=== PATIENT | female | born 1985 | race Caucasian/White ===

== ENCOUNTER 2024-10-16 07:28 | Emergency (ER) | payer MEDICAID, SELFPAY ==
[2024-10-16 07:35] VITALS: BP 114/69; PULSE 99; RESP 19; TEMP 36.8; O2SAT 100; BMI 19.8
--- NOTE | 2024-10-16 07:37 | XR_ITS ---
Examination: PA lateral chest 2 views TECHNIQUE: Upright PA lateral chest 2 views Exam date and time: October 16, 2024 0749 hours INDICATIONS: Coughing beginning 3 days ago. FINDINGS: Pneumonia in the lingular segment left upper lobe and also at the left lung base posteriorly Normal heart size The osseous structures are intact IMPRESSION: Pneumonia lingular segment left upper lobe and left base
--- NOTE | 2024-10-16 09:23 | PD.EDURI ---
Upper Respiratory Inf. RME/HPI General Chief Complaint: Shortness of Breath/Dyspnea Stated Complaint: LEFT LOWER LUNG PAIN AFTER COUGH X 3 DAYS Time Seen by Provider: 10/16/24 07:30 Arrival date/time: 10/16/24 07:28 39-year-old female presents emergency department complains of cough and congestion patient for symptoms ongoing for the last 3 days. Patient does report she is homeless Limitations: no limitations Related Data Home Medications ?Medication ?Instructions ?Recorded ?Confirmed ascorbic acid (vitamin C) 125 mg 125 mg PO QDAY 03/17/23 03/17/23 chewable tablet (Vitamin C) ergocalciferol (vitamin D2) 1,000 1 unit PO 03/17/23 unit capsule Previous Rx's ?Medication ?Instructions ?Recorded benzonatate 100 mg capsule 100 mg PO TID #14 caps 10/16/24 ibuprofen 600 mg tablet 600 mg PO Q6H #30 tabs 10/16/24 levofloxacin 750 mg tablet 750 mg PO Q24H 5 days #5 tabs 10/16/24 Allergies Allergy/AdvReac Type Severity Reaction Status Date / Time banana Allergy Unknown Verified 10/16/24 07:29 Cephalosporins Allergy Unknown Verified 10/16/24 07:29 promethazine Allergy Unknown Verified 10/16/24 07:29 cantaloupe Allergy Verified 10/16/24 07:29 Review of Systems Review of Systems Systems Reviewed: All systems reviewed, normal except as documented Constitutional Constitutional: Reports system reviewed and no additional complaints, except as documented, Denies fever(s) and Denies headache(s) Eyes Eyes: Reports system reviewed and no additional complaints, except as documented and Denies blurry vision ENT Ears, Nose, Mouth, and Throat: Reports system reviewed and no additional complaints, except as documented, Denies headache(s), Denies nasal congestion and Denies nasal discharge Cardiovascular Cardiovascular: Reports system reviewed and no additional complaints, except as documented, Denies chest pain and Denies dyspnea Respiratory Respiratory: Reports system reviewed and no additional complaints, except as documented, Reports chest congestion, Denies cough and Denies dyspnea Gastrointestinal Gastrointestinal: Reports system reviewed and no additional complaints, except as documented and Denies abdominal pain Integumentary/Breasts Skin/Breast: Reports system reviewed and no additional complaints, except as documented and Denies rash Neurologic Neurologic: Reports system reviewed and no additional complaints, except as documented, Reports as per HPI and Denies headache(s) Past Medical History Past Medical History NEUROLOGIC: Positive Neurological Disorders and Migraine CARDIAC: Negative Cardiac Disorders or Congestive Heart Failure RESPIRATORY: Positive Chronic Obstructive Pulmonary Disease (COPD), Asthma (Asthma, Bronchitis), Bronchitis and Emphysema GASTROINTESTINAL: Positive Hepatitis; Negative Gastrointestinal Disorders GENITOURINARY: Negative Genitourinary Disorders or Renal Disease REPRODUCTIVE: Positive Previous Pregnancies MUSCULOSKELETAL: Positive Musculoskeletal Disorders and Arthritis ENDOCRINE: Negative Endocrine Disorders, Diabetes Mellitus Type 1 or Diabetes Mellitus Type 2 HEMATOLOGIC: Positive Blood Disorders and Anemia; Negative Sickle Cell Disease PSYCHO/SOCIAL: Positive Depression and Anxiety Family History FAMILY HISTORY: Positive Family Psychiatric Problems, Family Respiratory Disorders and Family Cancer; Negative Family Cardiac Disorders or Family Gastrointestinal Problems Surgical History SURGICAL: Positive Abdominal Surgery (hernia repair) and Tubal Ligation Social History SMOKING STATUS: Light (< 1 pack/day) SECOND HAND EXPOSURE: Yes ED Exam General Limitations: Present no limitations General appearance: Present alert and in no apparent distress Head Head exam: Present atraumatic Eye Eye exam: Present normal appearance, PERRL and EOMI; Absent conjunctival injection ENT ENT exam: Present normal exam, normal oropharynx and mucous membranes moist Neck Neck exam: Present normal inspection, full ROM and trachea midline Chest Chest inspection: Present normal inspection and symmetric chest wall rise Respiratory Respiratory exam: Present normal lung sounds bilaterally; Absent respiratory distress, wheezes, stridor, accessory muscle use or prolonged expiratory phase Cardiovascular Cardiovascular exam: Present regular rate, normal rhythm and normal heart sounds; Absent bradycardia, tachycardia or irregular rhythm Abdominal Exam Abdominal exam: Present soft and normal bowel sounds Extremities Exam Extremities exam: Present normal inspection and full ROM Back Exam Back exam: Present normal inspection and full ROM Neurological Exam Neurological exam: Present alert, oriented X3 and CN II-XII intact Psychiatric Psychiatric exam: Present normal affect and normal mood Skin Skin exam: Present warm, dry, intact and normal color Course Quality Measures none Orders Category Date Time Status XR chest 2V Stat Exams 10/16/24 07:37 Completed Vital Signs Vital signs: Vital Signs Temperature 98.2 F 10/16/24 07:35 Pulse Rate 99 10/16/24 07:35 Respiratory Rate 19 10/16/24 07:35 Blood Pressure 114/69 10/16/24 07:35 Pulse Oximetry (%) 100 10/16/24 07:35 Oxygen Delivery Method Room Air 10/16/24 07:35 O2 saturation 100% room air within normal limits Upper Respiratory Infection MDM Narrative MDM Narrative:: 39-year-old female presents emergency department complains of cough and congestion patient for symptoms ongoing for the last 3 days. Patient does report she is homeless On exam patient does not appear ill or toxic does not appear to be acute distress Chest x-ray obtained consistent with pneumonia Patient discharged home with Levaquin Patient discharged home in no distress to follow-up with primary care doctor in the next 24 to 48 hours and for any worsening symptoms to return to the ER immediately Patient data External records reviewed:: [facility] [place] Clinical information provided by:: patient Social determinants that could affect healthcare access:: none Patient has the following chronic illnesses:: None How is presenting disease/condition affected by chronic disease/condition?: no chronic disease Evaluation data The following diagnostics were reviewed and interpreted by me:: lab results and radiology exam(s) Lab and/or radiology exams considered but not ordered:: Labs radiology obtained Interpretation Summary: Reviewed by me Medications / Prescriptions Medications or Prescriptions considered but not ordered:: Given Medication administrations:: Given Consultations Consultation(s) initiated? (list below): No Diagnosis Upper Respiratory Differential Diagnosis: upper respiratory infection, sinusitis, viral infection, bronchitis and influenza Most likely diagnosis given after review of the tests above:: Pneumonia Admission Indicated Admission indicated?: not indicated Admission Request Was there a request for admission?: No Disposition Plan Disposition Plan: Discharge Discharge Attestation Discharge Attestation: The patient and all family members were given an opportunity to ask questions and understood the discharge instructions. Discharge instructions specifically effects, indications for sooner follow up or return to the emergency department, and the expected course of current diagnosis. Patient condition: Stable Discharge Plan Plan Patient Disposition: HOME (Self Care) Disposition Comment: Stable Prescriptions/Referrals Prescriptions/Med Rec: New benzonatate 100 mg capsule 100 mg PO TID Qty: 14 0RF levofloxacin 750 mg tablet 750 mg PO Q24H 5 Days Qty: 5 0RF ibuprofen 600 mg tablet 600 mg PO Q6H Qty: 30 0RF No Action ergocalciferol (vitamin D2) 1,000 unit Capsule 1 unit PO ascorbic acid (vitamin C) [Vitamin C] 125 mg Tablet,Chewable 125 mg PO QDAY Referrals: Brendan Blanchard MD [Primary Care Provider] - 10/17/24 Problem List Clinical Impression: Pneumonia, Homelessness Patient/Caregiver Discharge Instructions Education Materials: ED Pneumonia (Adult) Additional Instructions: Please follow up with your primary care doctor in the next 24-48hrs for any worsening symptoms return here immediately Print Language: Bermudian Stand Alone Forms: Bertha Award Info., Patient Portal Info Letter PA/WINDOWS LAPTOP TECHNICIAN Supervising Physician PA/WINDOWS LAPTOP TECHNICIAN Supervising Physician: Dr Perez
== END 2024-10-16 10:40 | disposition home or self-care (01) ==
PROVIDERS: Emergency Provider Emergency Medicine; PCP Family Medicine
DX: J18.9 Pneumonia, unspecified organism (principal); Z59.00 Homelessness unspecified
CPT/HCPCS: 71046; 80307; 81001; 81025; 99283

== ENCOUNTER 2025-07-18 03:44 | Emergency (ER) | payer MEDICAID, SELFPAY ==
[2025-07-18 03:48] VITALS: PULSE 68; O2SAT 99; BMI 18.8
[2025-07-18 04:00] VITALS: BP 124/75; PULSE 86; RESP 19; TEMP 36.6; O2SAT 100
--- NOTE | 2025-07-18 04:27 | XR_ITS ---
Examination: CT abdomen and pelvis without contrast. Coronal 3-D reconstructions. Sagittal 2-D reconstructions. Date and time of exam:July 18, 2025, 0609 hours, comparison March 18, 2023 INDICATIONS: Abdominal pain radiating to back with diarrhea and left flank pain beginning 3 days ago, history bilateral pyosalpinx CTDI: vol (mGy): 4.39 DLP: (mGycm): 208 Technique: Axial images of the abdomen have been obtained, 3 mm slice thickness Intravenous contrast material has not been administered. Low dose protocols were performed. One or more of the following dose reduction techniques were used; automated exposure control, adjustment of the mA and/or KV according to patient size, use of iterative reconstruction technique. Findings: No focal liver or splenic lesions. Gallbladder appears contracted Fluid distended stomach No pancreatic mass. No renal or ureteral calculi No bowel obstruction Appendix partially visualized not enlarged No pericecal inflammatory change No diverticulitis Anteverted uterus Bowel loops in the pelvis Urinary bladder wall thickening up to 8 mm Mild diffuse lumbar disc narrowing IMPRESSION: The entire study is significantly limited without intravenous contrast No renal or ureteral calculi, no hydronephrosis Appendix appears partially visualized not enlarged No diverticulitis Cystitis pattern
--- NOTE | 2025-07-18 04:28 | XR_ITS ---
Examination: Abdomen sonogram, Limited Date and time of exam: July 18, 2025, 0514 hours INDICATIONS: Abdominal pain beginning 9:00 PM last night. Technique: Real-time alston scale transabdominal sonographic images of the upper abdomen obtained. Findings: Normal gallbladder. Normal common bile duct 0.3 cm. Pancreatic head 2.4 cm Liver 13.9 cm smooth contour no focal liver lesions. Normal hepatopedal portal venous flow. Patent IVC. IMPRESSION: Normal gallbladder. Normal common bile duct.
--- NOTE | 2025-07-18 04:28 | PD.EDRME ---
Rapid Medical Screening Exam [facility] Arrival date/time: 07/18/25 03:44 40F with history of homelessness and tubal ligation presents to ED with 2 days of back/flank pain, N/V, and non-bloody diarrhea. Chief Complaint: Abdominal Pain Vital signs: Vital Signs Temperature 97.9 F 07/18/25 04:00 Pulse Rate 86 07/18/25 04:00 Respiratory Rate 19 07/18/25 04:00 Blood Pressure 124/75 07/18/25 04:00 Pulse Oximetry (%) 100 07/18/25 04:00 Oxygen Delivery Method Room Air 07/18/25 04:00
[2025-07-18] MEDS: ONDANSETRON ODT 4 MG TABRAP PO (05:12)
[2025-07-18] MEDS: DICYCLOMINE 10 MG CAPSULE PO (05:12)
[2025-07-18 05:24] LABS: Basophils # (Auto) 0.0 Thou/mm3 (0.0-0.2); Basophils % (Auto) 0 % (0-2.5); Eosinophils # (Auto) 0.1 Thou/mm3 (0.0-0.5); Eosinophils % (Auto) 1 % (0-10); Hematocrit 44.5 % (36.0-46.0); Hemoglobin 14.7 g/dL (12.0-16.0); Immature Granulocytes Auto 0.02 Thou/mm3 (0.00-0.00); Lymphocytes # (Auto) 1.9 Thou/mm3 (1.0-4.8); Lymphocytes % (Auto) 24 % (10-50); Mean Corpuscular HGB Conc 33.0 g/dl (31.0-37.0); Mean Corpuscular Hemoglobin 29.5 pg (25.0-35.0); Mean Corpuscular Volume 89 fL (80-100); Monocytes # (Auto) 0.5 Thou/mm3 (0.0-0.8); Monocytes % (Auto) 6 % (0-12); Neutrophils # (Auto) 5.3 Thou/mm3 (1.8-7.7); Neutrophils % (Auto) 68 % (37-80); Nucleated Red Blood Cell # 0.00 Thou/mm3 (0.00-0.00); Nucleated Red Blood Cell % 0 /100 WBC (0); Platelet Count 197 Thou/mm3 (140-440); RDW Standard Deviation 43.8 fL (36.4-46.3); Red Blood Count 4.99 Miln/mm3 (4.00-5.20); White Blood Count 7.8 Thou/mm3 (3.6-11.0)
[2025-07-18 05:31] LABS: Collection Type, Urine Clean Catch
[2025-07-18 06:26] LABS: Alanine Aminotransferase 35 U/L (10-49); Albumin, Serum 4.3 gm/dL (3.5-5.0); Albumin/Globulin Ratio 1.7 (1.2-2.2); Alcohol, Blood Medical < 3.0 mg/dL (0-10.0); Alkaline Phosphatase 82 U/L (46-116); Anion Gap 7 (7-16); Aspartate Amino Transferase 47 U/L (0-34); BUN/Creatinine Ratio 13 Ratio (12-20); Bilirubin,Total 0.2 mg/dL (0.3-1.2); Blood Urea Nitrogen 10 mg/dL (9-23); Calcium 10.1 mg/dL (8.3-10.6); Calcium (Corrected) 10.1 mg/dL (8.5-10.1); Carbon Dioxide 26.7 mMol/L (20.0-31.0); Chloride 106 mMol/L (98-107); Creatinine (Component) 0.8 mg/dL (0.6-1.3); Estimated Creatinine Clearance 65.6 mL/min (>60); Globulin 2.5 gm/dL (2.3-3.5); Glucose 87 mg/dL (74-106); Lipase 35 U/L (12-53); Osmolality,Calculated 277 (275-295); Potassium 4.2 mMol/L (3.4-5.1); Sodium 140 mMol/L (136-145); Total Protein 6.8 gm/dL (5.7-8.2); eGFR > 60 See Note
[2025-07-18 06:31] LABS: Amphetamine/Methamp Scrn,U Positive (Negative); Barbiturate Screen,Urine Negative (Negative); Benzodiazepines Screen,Urine Negative (Negative); Benzoylecgonine Screen, Ur Negative (Negative); Fentanyl Screen,Urine Negative (Negative); Opiate Screen,Urine Negative (Negative); THC Screen,Urine Positive (Negative)
[2025-07-18 06:45] LABS: Bacteria,Urine 1+; Bilirubin,Urine Negative (Negative); Blood,Urine 1+ (Negative); Calcium Oxalate Crystals,Urine 4+; Clarity,Urine Turbid (Clear/Hazy); Color,Urine Yellow (Lt Yel-Yel); Culture Indicated,Urine Contaminated; Glucose, Urine Negative (Negative); Ketones,Urine Negative (Negative); Leukocyte Esterase,Urine Negative (Negative); Nitrite,Urine Positive (Negative); PH,Urine 6.0 (5.0-7.0); Protein,Urine Trace (Neg - Trace); RBC,Urine 7 /hpf (0-3); Specific Gravity,Urine 1.033 (1.001-1.035); Squamous Epithelial Cell,Urine 20 /hpf (0-5); Urobilinogen,Urine Negative mg/dL (0.0-1.0); WBC,Urine 7 /hpf (0-5)
[2025-07-18 07:33] VITALS: BP 125/80; PULSE 107; RESP 16; TEMP 36.8; O2SAT 98
--- NOTE | 2025-07-18 07:59 | EDNOTE_ITS ---
ED Abdominal Pain RME/HPI General Chief Complaint: Abdominal Pain Stated complaint: ABD PAIN RADIATING TO BACK, DIARRHEA Time seen by provider: 07/18/25 06:43 Arrival date/time: 07/18/25 03:44 40F with history of homelessness and tubal ligation presents to ED with 2 days of back/flank pain, N/V, and non-bloody diarrhea. Limitations: no limitations RME / HPI RME / HPI narrative: 07/18/25 03:44 40F with history of homelessness and tubal ligation presents to ED with 2 days of back/flank pain, N/V, and non-bloody diarrhea. Related Data Home Medications ?Medication ?Instructions ?Recorded ?Confirmed ascorbic acid (vitamin C) 125 mg 125 mg PO QDAY 03/17/23 chewable tablet (Vitamin C) ergocalciferol (vitamin D2) 1,000 1 unit PO 03/17/23 unit capsule Previous Rx's ?Medication ?Instructions ?Recorded benzonatate 100 mg capsule 100 mg PO TID #14 caps 09/22 05/14 ibuprofen 600 mg tablet 600 mg PO Q6H #30 tabs 10/16 ciprofloxacin HCl 500 mg tablet 500 mg PO BID 7 days # 14 tabs 07/18/25 loperamide 2 mg capsule (Imodium 2 mg PO Q6H PRN loose stool #14 07/18/25 A-D) caps ondansetron 4 mg disintegrating 4 mg PO Q8H PRN nausea and 07/18/25 tablet vomiting #10 tabs Allergies Allergy/AdvReac Type Severity Reaction Status Date / Time banana Allergy Unknown Verified 07/18/25 03:53 Cephalosporins Allergy Unknown Verified 07/18/25 03:53 promethazine Allergy Unknown Verified 07/18/25 03:53 cantaloupe Allergy Verified 07/18/25 03:53 Review of Systems Review of Systems Systems Reviewed: All systems reviewed, normal except as documented Constitutional Constitutional: Reports system reviewed and no additional complaints, except as documented, Denies fever(s) and Denies headache(s) Eyes Eyes: Reports system reviewed and no additional complaints, except as documented and Denies blurry vision ENT Ears, Nose, Mouth, and Throat: Reports system reviewed and no additional complaints, except as documented, Denies headache(s), Denies nasal congestion and Denies nasal discharge Cardiovascular Cardiovascular: Reports system reviewed and no additional complaints, except as documented, Denies chest pain and Denies dyspnea Respiratory Respiratory: Reports system reviewed and no additional complaints, except as documented, Denies chest congestion, Denies cough and Denies dyspnea Gastrointestinal Gastrointestinal: Reports system reviewed and no additional complaints, except as documented, Reports abdominal pain, Reports cramping, Reports loose stools and Reports vomiting Integumentary/Breasts Skin/Breast: Reports system reviewed and no additional complaints, except as documented and Denies rash Neurologic Neurologic: Reports system reviewed and no additional complaints, except as documented, Reports as per HPI and Denies headache(s) Past Medical History Past Medical History NEUROLOGIC: Positive Neurological Disorders and Migraine CARDIAC: Negative Cardiac Disorders or Congestive Heart Failure RESPIRATORY: Positive Chronic Obstructive Pulmonary Disease (COPD), Asthma (Asthma, Bronchitis), Bronchitis and Emphysema GASTROINTESTINAL: Positive Hepatitis; Negative Gastrointestinal Disorders GENITOURINARY: Negative Genitourinary Disorders or Renal Disease REPRODUCTIVE: Positive Previous Pregnancies MUSCULOSKELETAL: Positive Musculoskeletal Disorders and Arthritis ENDOCRINE: Negative Endocrine Disorders, Diabetes Mellitus Type 1 or Diabetes Mellitus Type 2 HEMATOLOGIC: Positive Blood Disorders and Anemia; Negative Sickle Cell Disease PSYCHO/SOCIAL: Positive Depression and Anxiety Family History FAMILY HISTORY: Positive Family Psychiatric Problems, Family Respiratory Disorders and Family Cancer; Negative Family Cardiac Disorders or Family Gastrointestinal Problems Surgical History SURGICAL: Positive Abdominal Surgery (hernia repair) and Tubal Ligation Social History SMOKING STATUS: Current every day smoker SECOND HAND EXPOSURE: Yes ED Exam General Limitations: Present no limitations General appearance: Present alert and in no apparent distress Head Head exam: Present atraumatic, normocephalic and normal inspection Eye Eye exam: Present normal appearance, PERRL and EOMI; Absent conjunctival injection ENT ENT exam: Present normal exam, normal oropharynx and mucous membranes moist Neck Neck exam: Present normal inspection, full ROM and trachea midline Chest Chest inspection: Present normal inspection and symmetric chest wall rise Respiratory Respiratory exam: Present normal lung sounds bilaterally; Absent respiratory distress or wheezes Cardiovascular Cardiovascular exam: Present regular rate, normal rhythm and normal heart sounds Abdominal Exam Abdominal exam: Present soft and normal bowel sounds; Absent distention, tenderness, rebound or rigidity Extremities Exam Extremities exam: Present normal inspection and full ROM Back Exam Back exam: Present normal inspection and full ROM Neurological Exam Neurological exam: Present alert, oriented X3 and CN II-XII intact Psychiatric Psychiatric exam: Present normal affect and normal mood Skin Skin exam: Present warm, dry, intact and normal color Course Quality Measures none Orders Category Date Time Status CT abdomen pelvis wo con Stat Exams 07/18/25 04:27 Completed US gall bladder Stat Exams 07/18/25 04:28 Completed Alcohol, Blood Medical Stat Lab 07/18/25 04:57 Completed CBC Stat Lab 07/18/25 04:57 Completed CMP [Comprehensive Metabolic Panel] Stat Lab 07/18/25 04:57 Completed Drug Screen,Urine Stat Lab 07/18/25 04:41 Completed Lipase Stat Lab 07/18/25 04:57 Completed Urinalysis, C/S if Indicated Stat Lab 07/18/25 04:41 Completed Dicyclomine [Bentyl] Med 07/18/25 04:28 Discontinued 10 mg PO X1 ONE Ondansetron Odt [Zofran Odt] Med 07/18/25 04:27 Discontinued 4 mg PO X1 ONE Vital Signs Vital signs: Vital Signs Temperature 97.9 F 07/18/25 04:00 Pulse Rate 86 07/18/25 04:00 Respiratory Rate 19 07/18/25 04:00 Blood Pressure 124/75 07/18/25 04:00 Pulse Oximetry (%) 100 07/18/25 04:00 Oxygen Delivery Method Room Air 07/18/25 04:00 O2 saturation 100% on room air with normal limits Abdominal Pain MDM MDM Narrative MDM Narrative:: 40F with history of homelessness and tubal ligation presents to ED with 2 days of back/flank pain, N/V, and non-bloody diarrhea. On exam patient well-appearing patient does not appear ill or toxic no acute distress Lab work and imaging reviewed no acute emergent findings noted Patient discharged home in no distress to follow-up with primary care doctor in the next 24 to 48 hours and for any worsening symptoms to return to the ER immediately Patient data External records reviewed:: [facility] previous records Clinical information provided by:: patient Social determinants that could affect healthcare access:: housing Patient has the following chronic illnesses:: See history How is presenting disease/condition affected by chronic disease/condition?: caused by Evaluation data The following diagnostics were reviewed and interpreted by me:: lab results and radiology exam(s) Lab and/or radiology exams considered but not ordered:: Labs radiology obtained Interpretation Summary: Reviewed by me Medications / Prescriptions Medications or Prescriptions considered but not ordered:: Given Medication administrations:: Medication Administration History Discontinued Medications Dicyclomine HCl (Dicyclomine 10 Mg Capsule) 10 mg PO X1 ONE Stop: 07/18/25 04:29 Last Admin: 07/18/25 05:12 Dose: 10 mg Documented By: SHASHI Ondansetron HCl (Ondansetron Odt 4 Mg Tabrap) 4 mg PO X1 ONE; Protocol Stop: 07/18/25 04:28 Last Admin: 07/18/25 05:12 Dose: 4 mg Documented By: SHASHI Given Consultations Consultation(s) initiated? (list below): No Diagnosis Differential diagnosis abdominal pain: abdominal pain, acute appendicitis, calculus of kidney, constipation and diverticulitis Most likely diagnosis given after review of the tests above:: Abdominal pain Admission Indicated Admission indicated?: not indicated Admission Request Was there a request for admission?: No Disposition Plan Disposition Plan: Discharge Discharge Attestation Discharge Attestation: The patient and all family members were given an opportunity to ask questions and understood the discharge instructions. Discharge instructions specifically effects, indications for sooner follow up or return to the emergency department, and the expected course of current diagnosis. Patient condition: Stable Discharge Plan Plan Patient Disposition: HOME (Self Care) Discharge Disposition comment: Stable Prescriptions/Referrals Prescriptions/Med Rec: New loperamide [Imodium A-D] 2 mg capsule 2 mg PO Q6H PRN (Reason: loose stool) Qty: 14 0RF ciprofloxacin HCl 500 mg tablet 500 mg PO BID 7 Days Qty: 14 0RF ondansetron 4 mg tablet,disintegrating 4 mg PO Q8H PRN (Reason: nausea and vomiting) Qty: 10 0RF No Action ergocalciferol (vitamin D2) 1,000 unit Capsule 1 unit PO ascorbic acid (vitamin C) [Vitamin C] 125 mg Tablet,Chewable 125 mg PO QDAY benzonatate 100 mg capsule 100 mg PO TID Qty: 14 0RF ibuprofen 600 mg tablet 600 mg PO Q6H Qty: 30 0RF Referrals: Brendan Blanchard MD [Primary Care Provider] - In 1 week Problem List Clinical Impression: Abdominal pain, Nausea vomiting and diarrhea Patient/Caregiver Discharge Instructions Education Materials: Abdominal Pain Additional Instructions: Please follow up with your primary care doctor in the next 24-48hrs for any worsening symptoms return here immediately Print Language: Hungarian Stand Alone Forms: Bertha Award Info., Patient Portal Info Letter PA/ALTERNATIVE FINANCING SPECIALIST Supervising Physician PA/ALTERNATIVE FINANCING SPECIALIST Supervising Physician: dr [email or web address]
== END 2025-07-18 08:04 | disposition home or self-care (01) ==
PROVIDERS: Physician Assistant; Emergency Provider Family Medicine; PCP Family Medicine
DX: R19.7 Diarrhea, unspecified (principal); R11.2 Nausea with vomiting, unspecified; R10.9 Unspecified abdominal pain; Z59.00 Homelessness unspecified
CPT/HCPCS: 36415; 74176; 76705; 80053; 80307; 80320; 81001; 83690; 85025; 99283; Q0162; A9270; G0480

== ENCOUNTER 2025-08-14 18:11 | Emergency (ER) | payer MEDICAID, SELFPAY ==
[2025-08-14 19:03] VITALS: BP 123/77; PULSE 80; RESP 18; TEMP 37.2; O2SAT 100
--- NOTE | 2025-08-14 19:17 | PD.EDABDPN ---
ED Abdominal Pain RME/HPI General Chief Complaint: General Adult/Misc Complain Stated complaint: INTESTINAL WORMS Time seen by provider: 08/14/25 19:11 Arrival date/time: 08/14/25 18:11 40F with history of homelessness and drug use presents to ED with intestinal worms. Patient states she's seen them. Limitations: no limitations Related Data Home Medications ?Medication ?Instructions ?Recorded ?Confirmed ascorbic acid (vitamin C) 125 mg 125 mg PO QDAY 03/17/23 03/17/23 chewable tablet (Vitamin C) ergocalciferol (vitamin D2) 1,000 1 unit PO 03/17/23 unit capsule Previous Rx's ?Medication ?Instructions ?Recorded benzonatate 100 mg capsule 100 mg PO TID #14 caps 10/16/24 ibuprofen 600 mg tablet 600 mg PO Q6H #30 tabs 10/16/24 loperamide 2 mg capsule (Imodium 2 mg PO Q6H PRN loose stool #14 07/18/25 A-D) caps ondansetron 4 mg disintegrating 4 mg PO Q8H PRN nausea and 07/18/25 tablet vomiting #10 tabs albendazole 200 mg tablet 400 mg (2 x 200 mg) PO BID 3 days 08/14/25 #12 tabs Allergies Allergy/AdvReac Type Severity Reaction Status Date / Time promethazine Allergy Severe Hallucinati Verified 08/14/25 18:16 ng Cephalosporins Allergy Intermediate Hives Verified 08/14/25 18:16 banana Allergy Mild Swelling Verified 08/14/25 18:16 of Lip/Tongue/Throat cantaloupe Allergy Mild Swelling Verified 08/14/25 18:16 of Lip/Tongue/Throat Review of Systems Review of Systems Systems Reviewed: All systems reviewed, normal except as documented Past Medical History Past Medical History NEUROLOGIC: Positive Neurological Disorders and Migraine CARDIAC: Negative Cardiac Disorders or Congestive Heart Failure RESPIRATORY: Positive Chronic Obstructive Pulmonary Disease (COPD), Asthma (Asthma, Bronchitis), Bronchitis and Emphysema GASTROINTESTINAL: Positive Hepatitis; Negative Gastrointestinal Disorders GENITOURINARY: Negative Genitourinary Disorders or Renal Disease REPRODUCTIVE: Positive Previous Pregnancies MUSCULOSKELETAL: Positive Musculoskeletal Disorders and Arthritis ENDOCRINE: Negative Endocrine Disorders, Diabetes Mellitus Type 1 or Diabetes Mellitus Type 2 HEMATOLOGIC: Positive Blood Disorders and Anemia; Negative Sickle Cell Disease PSYCHO/SOCIAL: Positive Depression and Anxiety Family History FAMILY HISTORY: Positive Family Psychiatric Problems, Family Respiratory Disorders and Family Cancer; Negative Family Cardiac Disorders or Family Gastrointestinal Problems Surgical History SURGICAL: Positive Abdominal Surgery (hernia repair) and Tubal Ligation Social History SMOKING STATUS: Current every day smoker SECOND HAND EXPOSURE: Yes ED Exam General Limitations: Present no limitations General appearance: Present alert and in no apparent distress Head Head exam: Present atraumatic Neck Neck exam: Present normal inspection, full ROM and trachea midline Chest Chest inspection: Present normal inspection and symmetric chest wall rise Extremities Exam Extremities exam: Present normal inspection and full ROM Neurological Exam Neurological exam: Present alert and oriented X3 Psychiatric Psychiatric exam: Present normal affect and normal mood Skin Skin exam: Present warm, dry, intact and normal color Course Quality Measures none Vital Signs Vital signs: Vital Signs Temperature 98.9 F 08/14/25 19:03 Pulse Rate 80 08/14/25 19:03 Respiratory Rate 18 08/14/25 19:03 Blood Pressure 123/77 08/14/25 19:03 Pulse Oximetry (%) 100 08/14/25 19:03 Oxygen Delivery Method Room Air 08/14/25 19:03 O2 at 100% on RA and WNLs Abdominal Pain MDM MDM Narrative MDM Narrative:: 40F with history of homelessness and drug use presents to ED with intestinal worms. Patient states she's seen them. Physical exam reveals female in no distres. Patient is afebrile and alert. Given high risk factors and low risk for treatment, will treat with short course. 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 Patient data External records reviewed:: [facility] previous records Clinical information provided by:: patient Social determinants that could affect healthcare access:: substance use Patient has the following chronic illnesses:: homelessness and drug use How is presenting disease/condition affected by chronic disease/condition?: exacerbated by Evaluation data The following diagnostics were reviewed and interpreted by me:: other (specify) (none) Lab and/or radiology exams considered but not ordered:: not ordered Interpretation Summary: n/a Medications / Prescriptions Medications or Prescriptions considered but not ordered:: not ordered Medication administrations:: n/a Consultations Consultation(s) initiated? (list below): No Diagnosis Differential diagnosis abdominal pain: abdominal pain, acute appendicitis, calculus of kidney, constipation, diverticulitis, endometriosis, gastroenteritis, pancreatitis, small bowel obstruction and other (delusional parasitosis) Most likely diagnosis given after review of the tests above:: ab pain Admission Indicated Admission indicated?: not indicated Admission Request Was there a request for admission?: No Disposition Plan Disposition Plan: Discharge Discharge Attestation Discharge Attestation: The patient and all family members were given an opportunity to ask questions and understood the discharge instructions. Discharge instructions specifically effects, indications for sooner follow up or return to the emergency department, and the expected course of current diagnosis. Patient condition: Stable Discharge Plan Plan Patient Disposition: HOME (Self Care) Discharge Disposition comment: Stable Prescriptions/Referrals Prescriptions/Med Rec: New albendazole 200 mg tablet 400 mg PO BID 3 Days Qty: 12 0RF No Action ergocalciferol (vitamin D2) 1,000 unit Capsule 1 unit PO ascorbic acid (vitamin C) [Vitamin C] 125 mg Tablet,Chewable 125 mg PO QDAY loperamide [Imodium A-D] 2 mg capsule 2 mg PO Q6H PRN (Reason: loose stool) Qty: 14 0RF ondansetron 4 mg tablet,disintegrating 4 mg PO Q8H PRN (Reason: nausea and vomiting) Qty: 10 0RF benzonatate 100 mg capsule 100 mg PO TID Qty: 14 0RF ibuprofen 600 mg tablet 600 mg PO Q6H Qty: 30 0RF Problem List Clinical Impression: Abdominal pain Patient/Caregiver Discharge Instructions Additional Instructions: Please follow-up with PCP within 24-48 hours and return immediately if symptoms worsen. Print Language: [place] Stand Alone Forms: Patient Portal Info Letter JADIEL/RAAD Supervising Physician JADIEL/RAAD Supervising Physician: Dr. Rachel
== END 2025-08-14 19:20 | disposition home or self-care (01) ==
LOC: SERX 19:22
PROVIDERS: Emergency Provider Emergency Medicine; PCP Family Medicine
DX: R10.9 Unspecified abdominal pain (principal); Z59.00 Homelessness unspecified
CPT/HCPCS: 99281